=== PATIENT | female | born 1990 | race Caucasian/White ===

== ENCOUNTER 2021-12-22 23:31 | Inpatient (IN) | payer OTHER ==
[2021-12-23 00:15] VITALS: BMI 26.2
[2021-12-23] MEDS ORDERED: MAGNESIUM HYDROX 2400MG/30ML ORAL SUSPENSION 30 ML CUP PO PRN (00:44)
[2021-12-23] MEDS ORDERED: ONDANSETRON *ODT* 4 MG TABLET SL PRN (00:44)
[2021-12-23] MEDS ORDERED: MENTHOL/PHENOL 1 EACH UD MM PRN (00:44)
[2021-12-23] MEDS ORDERED: MAGNESIUM CITRATE 300 ML BOTTLE PO PRN (00:44)
[2021-12-23] MEDS ORDERED: LOPERAMIDE HCL 2 MG CAPSULE PO PRN (00:44)
[2021-12-23] MEDS ORDERED: NICOTINE 10 MG CARTRIDGE (INHALER) IH PRN (00:44)
[2021-12-23] MEDS ORDERED: MAG HYDROX/AL HYDROX/SIMETH 30 ML UNIT-DOSE CUP PO PRN (00:44)
[2021-12-23] MEDS ORDERED: BISMUTH SUBSALICYLATE 524 MG/30 ML PO PRN (00:44)
[2021-12-23] MEDS ORDERED: ACETAMINOPHEN 325 MG TABLET (FP) PO PRN ×2 (00:44)
[2021-12-23] MEDS ORDERED: cloNIDine HCL 0.1 MG TABLET PO ONE (01:45)
[2021-12-23] MEDS: METHOCARBAMOL 500 MG TABLET PO PRN ×2 (03:58→23:13)
[2021-12-23] MEDS: IBUPROFEN 400 MG TABLET (FP) PO PRN (03:58)
[2021-12-23] MEDS: hydrOXYzine PAMOATE 25 MG CAPSULE (FP) PO SCH ×5 (06:13→23:13)
[2021-12-23 11:01] LABS: HEMOGLOBIN 10.7 GM/dL (10.7-15.3); MCH 23.7 pg (25.7-33.7); MCHC 32.4 g/dl (32.0-36.0); MEAN CELL VOLUME 73.3 fl (80-96); MEAN PLT VOLUME 8.9 fl (7.5-11.1); PLATELET COUNT 201 10^3/uL (134-434); RDW 14.4 % (11.6-15.6); WHITE BLOOD COUNT 5.1 K/mm3 (4.0-10.0)
[2021-12-23] MEDS: PRENATAL VITAMINS W/ FOLIC ACID TABLET (FP) PO SCH (11:08)
[2021-12-23 14:27] LABS: ALBUMIN 3.2 g/dl (3.4-5.0); BILIRUBIN,TOTAL 0.3 mg/dL (0.2-1); BLOOD UREA NITROGEN 13.9 mg/dL (7-18); CALCIUM 8.7 mg/dL (8.5-10.1); CREATININE 0.9 mg/dL (0.55-1.3); TOT PROT 6.6 g/dl (6.4-8.2)
[2021-12-23 18:55] LABS: HIV INTERPRETATION NEGATIVE (NEGATIVE)
[2021-12-23] MEDS: THIAMINE HCL 100 MG TABLET (FP) PO SCH (23:12)
[2021-12-23] MEDS: MELATONIN 5 MG TABLETS PO SCH (23:12)
[2021-12-24] MEDS: hydrOXYzine PAMOATE 25 MG CAPSULE (FP) PO SCH ×5 (06:56→23:04)
[2021-12-24] MEDS ORDERED: cloNIDine HCL 0.1 MG TABLET PO PRN (09:13)
[2021-12-24] MEDS ORDERED: diazePAM 5 MG TABLET PO PRN (09:18)
[2021-12-24] MEDS ORDERED: methaDONE HCL 10 MG TABLET (FOR DETOX USE ONLY) ONE (10:00)
[2021-12-24] MEDS ORDERED: methaDONE HCL 10 MG TABLET (FOR DETOX USE ONLY) PO ONE (10:00)
[2021-12-24] MEDS: METHOCARBAMOL 500 MG TABLET PO PRN (12:46)
[2021-12-24] MEDS: PRENATAL VITAMINS W/ FOLIC ACID TABLET (FP) PO SCH (12:47)
[2021-12-24] MEDS: THIAMINE HCL 100 MG TABLET (FP) PO SCH (23:03)
[2021-12-24] MEDS: MELATONIN 5 MG TABLETS PO SCH (23:03)
[2021-12-25] MEDS: hydrOXYzine PAMOATE 25 MG CAPSULE (FP) PO SCH ×5 (00:05→17:07)
[2021-12-25] MEDS: IBUPROFEN 400 MG TABLET (FP) PO PRN ×2 (05:53→16:47)
[2021-12-25] MEDS: METHOCARBAMOL 500 MG TABLET PO PRN ×2 (05:53→11:57)
[2021-12-25] MEDS ORDERED: methaDONE HCL 10 MG TABLET (FOR DETOX USE ONLY) PO ONE (10:00)
[2021-12-25] MEDS: PRENATAL VITAMINS W/ FOLIC ACID TABLET (FP) PO SCH (10:30)
[2021-12-25 19:01] VITALS: BP 132/68; PULSE 91; TEMP 98.7
[2021-12-27] MEDS ORDERED: methaDONE HCL 10 MG TABLET (FOR DETOX USE ONLY) PO ONE (10:00)
== END 2021-12-25 05:55 | disposition left against medical advice (07) | DRG 770 ==
LOC: YASAS 23:31 → Y6N 12-23 00:53
PROVIDERS: ADMIT Allergy & Immunology; ATTEND Allergy & Immunology
PROC: HZ2ZZZZ Detoxification Services for Substance Abuse Treatment (ICD-10-PCS; principal; 2021-12-23)
DX: F11.23 Opioid dependence with withdrawal (principal); F10.230 Alcohol dependence with withdrawal, uncomplicated; F14.20 Cocaine dependence, uncomplicated; F17.210 Nicotine dependence, cigarettes, uncomplicated; I10 Essential (primary) hypertension; J45.909 Unspecified asthma, uncomplicated; R40.0 Somnolence; Z91.040 Latex allergy status; Z91.013 Allergy to seafood
CPT/HCPCS: 36415; 80053; 81025; 82962; 85027; 86780; 87389; C9803; J0735; U0003; U0005

== ENCOUNTER 2022-02-19 01:44 | Emergency (ER) | payer OTHER ==
[2022-02-19 02:08] VITALS: BMI 26.1
[2022-02-19] MEDS ORDERED: diazePAM 5 MG TABLET PO ONE (02:34)
[2022-02-19] MEDS ORDERED: diazePAM 5 MG TABLET ONE (02:48)
[2022-02-19 02:51] VITALS: BP 171/114; PULSE 94
[2022-02-19 03:59] LABS: BASO % 0.7 % (0-2.0); EOS % 5.2 % (0-4.5); HEMATOCRIT 36.9 % (32.4-45.2); HEMOGLOBIN 11.9 GM/dL (10.7-15.3); LYMPH % 23.6 % (8-40); MCHC 32.4 g/dl (32.0-36.0); MEAN PLT VOLUME 8.1 fl (7.5-11.1); MONO % 13.2 % (3.8-10.2); NEUT % 57.3 % (42.8-82.8); PLATELET COUNT 222 10^3/uL (134-434); RDW 14.4 % (11.6-15.6); WHITE BLOOD COUNT 3.9 K/mm3 (4.0-10.0)
[2022-02-19 04:21] LABS: ALBUMIN 3.7 g/dl (3.4-5.0); BLOOD UREA NITROGEN 11.2 mg/dL (7-18); CALCIUM 8.9 mg/dL (8.5-10.1)
[2022-02-19 04:26] LABS: BILIRUBIN,TOTAL 0.3 mg/dL (0.2-1); TOT PROT 7.3 g/dl (6.4-8.2)
[2022-02-19 04:28] LABS: CREATININE 0.9 mg/dL (0.55-1.3)
== END 2022-02-19 05:12 | disposition home or self-care (01) ==
LOC: JER 01:44
DX: F11.20 Opioid dependence, uncomplicated (principal); F14.20 Cocaine dependence, uncomplicated
CPT/HCPCS: 36415; 80053; 84484; 85025; 93005; 93010; 99284-25